=== PATIENT | female | born 1940 | race African-American/Black ===

== ENCOUNTER 2021-01-13 04:31 | Inpatient (IN) | payer OTHER ==
[~2021-01-13] VITALS: Ht 175.3 cm; Wt 73.6 kg
[2021-01-13 05:40] LABS: Eosinophils # (auto) 0 10 ^3/uL (0-0.8); Eosinophils % (auto) 0.1 % (0.0-7.0); Monocytes # (auto) 0.4 10 ^3/uL (0-1.3); Monocytes % (auto) 3.6 % (0.0-12.0)
[2021-01-13 05:46] LABS: Basophils # (auto) 0 10 ^3/uL (0-0.2); Basophils % (auto) 0.4 % (0.0-2.0); Hematocrit 24.3 % (36.0-46.0); Hemoglobin 8.3 g/dL (12.2-16.2); Lymphocytes # (auto) 0.3 10 ^3/uL (0.4-5.4); Lymphocytes % (auto) 3.2 % (10.0-50.0); Mean Corpuscular Volume 79.4 fL (80.0-100.0); Neutrophils # (auto) 9.4 10 ^3/uL (1.6-8.6); Neutrophils % (auto) 92.7 % (37.0-80.0); Nucleated Red Blood Cells % 0.3 %; Red Blood Cells 3.05 10^6/uL (4.0-5.20); White Blood Cell 10.2 10^3/uL (4.4-10.8)
[2021-01-13 06:06] LABS: Lactic Acid w/Reflex 2.9 mmol/L (0.4-2.0)
[2021-01-13 06:07] LABS: Albumin 2.9 g/dL (3.4-5.0); BUN/Creatinine Ratio 25.5; Bilirubin, Total 6.6 mg/dL (0.2-1.0); Calcium 8.4 mg/dL (8.5-10.1); Potassium 3.3 mmol/L (3.5-5.1)
[2021-01-13] MEDS ORDERED: PIPERACILLIN-TAZOB 3.375GM 100 ML IV ONE (07:15)
[2021-01-13] MEDS ORDERED: FUROSEMIDE 40 MG/4 ML VIAL IV ONE (07:15)
[2021-01-13 07:20] LABS: Urine Amorphous Crystal FEW /hpf (None Seen); Urine Bacteria NONE SEEN /hpf (None Seen); Urine Blood 2+ /uL (Negative); Urine Specific Gravity 1.014 (1.001-1.035); Urine WBC 9 /hpf (0 - 5)
[2021-01-13] MEDS ORDERED: LORazepam 2MG/ML-1ML VIAL IV ONE (15:15)
[2021-01-13] MEDS ORDERED: HALOPERIDOL LACTATE 5 MG/ML INJ VIAL IM ONE (15:45)
[2021-01-13] MEDS ORDERED: NITROGLYCERIN 0.4 MG SL TAB SL PRN (17:15)
[2021-01-13] MEDS ORDERED: POTASSIUM CHLORIDE 20 MEQ, LIDOCAINE 1% (LOCAL ANESTH.) 2 ML in SODIUM CHL 0.9% 100 ML IV ONE (17:15)
[2021-01-13] MEDS ORDERED: MORPHINE SULFATE INJECTION 2 MG/2 ML SYRG IV PRN (17:15)
[2021-01-13] MEDS: cefTRIAXone 1GM/50ML D5W 50 ML IV SCH (18:05)
[2021-01-13 19:00] LABS: INR 1.27 (0.9-1.15); Partial Thromboplastin Time 30.4 sec (23.6-33.0)
[2021-01-13] MEDS: SPIRONOLACTONE 25 MG TAB PO SCH (19:30)
[2021-01-13] MEDS: CLINDAMYCIN 300MG IV 50 ML IV SCH (22:29)
[2021-01-14] MEDS ORDERED: DEXTROSE (50%) 50ML SYRG IV PRN (00:15)
[2021-01-14 04:30] LABS: Basophils # (auto) 0 10 ^3/uL (0-0.2); Eosinophils # (auto) 0 10 ^3/uL (0-0.8); Hematocrit 27.9 % (36.0-46.0); Lymphocytes # (auto) 0.3 10 ^3/uL (0.4-5.4); Monocytes # (auto) 0.5 10 ^3/uL (0-1.3); Neutrophils # (auto) 9.1 10 ^3/uL (1.6-8.6); Nucleated Red Blood Cells % 0.2 %
[2021-01-14 04:34] LABS: Basophils % (auto) 0.3 % (0.0-2.0); Eosinophils % (auto) 0.2 % (0.0-7.0); Hemoglobin 8.9 g/dL (12.2-16.2); Lymphocytes % (auto) 3.1 % (10.0-50.0); Mean Corpuscular Hemoglobin 25.8 pg (28.0-32.0); Mean Corpuscular Hgb Conc. 31.9 g/dL (32.0-36.0); Monocytes % (auto) 5.4 % (0.0-12.0); Red Blood Cells 3.44 10^6/uL (4.0-5.20)
[2021-01-14 04:49] LABS: Red Cell Distribution Width 22.4 % (11.8-14.3)
[2021-01-14 04:55] LABS: Albumin 2.8 g/dL (3.4-5.0); BUN/Creatinine Ratio 23.7; Calcium 8.4 mg/dL (8.5-10.1); Potassium 3.6 mmol/L (3.5-5.1)
[2021-01-14 04:58] LABS: Total Protein 5.9 g/dL (6.4-8.2)
[2021-01-14] MEDS: SPIRONOLACTONE 25 MG TAB PO SCH ×2 (06:00→18:00)
[2021-01-14] MEDS: CLINDAMYCIN 300MG IV 50 ML IV SCH ×3 (06:16→23:48)
[2021-01-14] MEDS: ACCU-CHEK COMFORT CURVE STRIP VI SCH ×4 (07:55→22:00)
[2021-01-14] MEDS: InsuLIN REG 1unit/0.01ml Soln (100units/ml) SC SCH ×4 (07:56→22:00)
[2021-01-14] MEDS: cefTRIAXone 1GM/50ML D5W 50 ML IV SCH (09:53)
[2021-01-14] MEDS: FUROSEMIDE 20 MG/2 ML VIAL IV SCH (10:23)
[2021-01-14] MEDS: SODIUM CHLORIDE 0.9% 1,000 ML IV SCH (11:06)
[2021-01-15] MEDS: SODIUM CHLORIDE 0.9% 1,000 ML IV SCH ×2 (01:02→01:18)
[2021-01-15 04:33] LABS: Basophils # (auto) 0 10 ^3/uL (0-0.2); Basophils % (auto) 0.3 % (0.0-2.0); Hemoglobin 8.6 g/dL (12.2-16.2); Monocytes # (auto) 0.4 10 ^3/uL (0-1.3); White Blood Cell 7.7 10^3/uL (4.4-10.8)
[2021-01-15 04:36] LABS: Eosinophils # (auto) 0.1 10 ^3/uL (0-0.8); Eosinophils % (auto) 0.7 % (0.0-7.0); Hematocrit 26.4 % (36.0-46.0); Lymphocytes # (auto) 0.4 10 ^3/uL (0.4-5.4); Lymphocytes % (auto) 4.6 % (10.0-50.0); Mean Corpuscular Hemoglobin 25.9 pg (28.0-32.0); Mean Corpuscular Hgb Conc. 32.4 g/dL (32.0-36.0); Monocytes % (auto) 4.6 % (0.0-12.0); Neutrophils # (auto) 6.9 10 ^3/uL (1.6-8.6); Neutrophils % (auto) 89.8 % (37.0-80.0); Nucleated Red Blood Cells % 0.3 %
[2021-01-15 04:47] LABS: Red Cell Distribution Width 24.2 % (11.8-14.3)
[2021-01-15 04:49] LABS: INR 1.19 (0.9-1.15); Partial Thromboplastin Time 30.6 sec (23.6-33.0)
[2021-01-15 04:52] LABS: BUN/Creatinine Ratio 25.8; Calcium 8.5 mg/dL (8.5-10.1); Potassium 3.6 mmol/L (3.5-5.1)
[2021-01-15] MEDS: SPIRONOLACTONE 25 MG TAB PO SCH ×2 (05:31→17:27)
[2021-01-15] MEDS: CLINDAMYCIN 300MG IV 50 ML IV SCH ×3 (05:31→21:56)
[2021-01-15] MEDS: ACCU-CHEK COMFORT CURVE STRIP VI SCH ×4 (06:04→21:56)
[2021-01-15] MEDS: InsuLIN REG 1unit/0.01ml Soln (100units/ml) SC SCH ×4 (06:43→21:56)
[2021-01-15 08:22] VITALS: BP 134/66
[2021-01-15 09:00] VITALS: BP 112/62
[2021-01-15] MEDS: cefTRIAXone 1GM/50ML D5W 50 ML IV SCH (09:29)
[2021-01-15] MEDS: FUROSEMIDE 20 MG/2 ML VIAL IV SCH (09:36)
[2021-01-15 13:00] VITALS: BP 118/25
[2021-01-15 22:00] VITALS: BP 122/68
[2021-01-16 05:00] VITALS: BP 120/58
[2021-01-16] MEDS: SPIRONOLACTONE 25 MG TAB PO SCH ×2 (06:00→17:04)
[2021-01-16] MEDS: CLINDAMYCIN 300MG IV 50 ML IV SCH ×3 (06:06→21:32)
[2021-01-16] MEDS: ACCU-CHEK COMFORT CURVE STRIP VI SCH ×4 (06:51→21:39)
[2021-01-16] MEDS: InsuLIN REG 1unit/0.01ml Soln (100units/ml) SC SCH ×4 (06:51→21:33)
[2021-01-16 07:05] LABS: Basophils # (auto) 0 10 ^3/uL (0-0.2); Eosinophils # (auto) 0 10 ^3/uL (0-0.8); Eosinophils % (auto) 0.3 % (0.0-7.0); Hemoglobin 9.2 g/dL (12.2-16.2); Lymphocytes # (auto) 0.5 10 ^3/uL (0.4-5.4); Mean Corpuscular Hemoglobin 26.2 pg (28.0-32.0); Neutrophils # (auto) 8.2 10 ^3/uL (1.6-8.6)
[2021-01-16 07:09] LABS: Basophils % (auto) 0.3 % (0.0-2.0); Hematocrit 28.3 % (36.0-46.0); Lymphocytes % (auto) 5.5 % (10.0-50.0); Mean Corpuscular Hgb Conc. 32.4 g/dL (32.0-36.0); Mean Corpuscular Volume 80.9 fL (80.0-100.0); Monocytes # (auto) 0.8 10 ^3/uL (0-1.3); Monocytes % (auto) 8.3 % (0.0-12.0); Neutrophils % (auto) 85.6 % (37.0-80.0); Nucleated Red Blood Cells % 0.4 %; White Blood Cell 9.5 10^3/uL (4.4-10.8)
[2021-01-16 07:18] LABS: INR 1.92 (0.9-1.15); Partial Thromboplastin Time 43.4 sec (23.6-33.0); Red Cell Distribution Width 24.5 % (11.8-14.3)
[2021-01-16 07:32] LABS: Alanine Aminotransferase 31 U/L (13-56); Albumin 2.4 g/dL (3.4-5.0); Anion Gap 11 (5-15); Aspartate Aminotransferase 36 U/L (15-37); BUN/Creatinine Ratio 24.5; Blood Urea Nitrogen 64 mg/dL (7-18); Calcium 8.2 mg/dL (8.5-10.1); Carbon Dioxide 25 mmol/L (21-32); Chloride 108 mmol/L (98-107); GFR African American 23 mL/min; GFR Non-African American 19 mL/min; Glucose 137 mg/dL (74-106); Magnesium 1.8 mg/dL (1.6-2.6); Potassium 3.4 mmol/L (3.5-5.1); Sodium 144 mmol/L (136-145)
[2021-01-16 07:34] LABS: Alkaline Phosphatase 190 U/L (45-117); Bilirubin, Total 4.6 mg/dL (0.2-1.0); Total Protein 5.6 g/dL (6.4-8.2)
[2021-01-16] MEDS ORDERED: PHYTONADIONE(VitK) ORAL Susp 10mg/10ml(1mg/ml) PO ONE (08:30)
[2021-01-16 09:00] VITALS: BP 146/67
[2021-01-16] MEDS: cefTRIAXone 1GM/50ML D5W 50 ML IV SCH (09:17)
[2021-01-16] MEDS: FUROSEMIDE 20 MG/2 ML VIAL IV SCH (09:23)
[2021-01-16 13:00] VITALS: BP 137/69
[2021-01-16 17:00] VITALS: BP 134/61
[2021-01-16] MEDS: MORPHINE SULFATE INJECTION 2 MG/2 ML SYRG IV PRN (17:03)
[2021-01-16] MEDS: FUROSEMIDE 40 MG/4 ML VIAL IV SCH (17:15)
[2021-01-16] MEDS: MUPIROCIN 2% OINT 15gm or 22gm EACHNOSTRI SCH (21:39)
[2021-01-16 22:00] VITALS: BP 130/67
[2021-01-17 05:00] VITALS: BP 102/54
[2021-01-17] MEDS: CLINDAMYCIN 300MG IV 50 ML IV SCH ×3 (06:23→21:20)
[2021-01-17] MEDS: FUROSEMIDE 40 MG/4 ML VIAL IV SCH ×2 (06:24→12:58)
[2021-01-17] MEDS: SPIRONOLACTONE 25 MG TAB PO SCH ×2 (06:24→17:31)
[2021-01-17] MEDS: InsuLIN REG 1unit/0.01ml Soln (100units/ml) SC SCH ×3 (06:25→21:21)
[2021-01-17] MEDS: ACCU-CHEK COMFORT CURVE STRIP VI SCH ×4 (06:25→21:21)
[2021-01-17 07:48] LABS: Basophils # (auto) 0 10 ^3/uL (0-0.2); Eosinophils # (auto) 0 10 ^3/uL (0-0.8); Lymphocytes # (auto) 0.4 10 ^3/uL (0.4-5.4); Monocytes # (auto) 0.7 10 ^3/uL (0-1.3); Neutrophils # (auto) 7.2 10 ^3/uL (1.6-8.6); Red Cell Distribution Width 24.8 % (11.8-14.3); White Blood Cell 8.3 10^3/uL (4.4-10.8)
[2021-01-17 07:51] LABS: Basophils % (auto) 0.2 % (0.0-2.0); Eosinophils % (auto) 0.3 % (0.0-7.0); Hematocrit 26.8 % (36.0-46.0); Hemoglobin 8.6 g/dL (12.2-16.2); Lymphocytes % (auto) 4.9 % (10.0-50.0); Mean Corpuscular Hgb Conc. 32.3 g/dL (32.0-36.0); Mean Corpuscular Volume 80.7 fL (80.0-100.0); Monocytes % (auto) 8.5 % (0.0-12.0); Neutrophils % (auto) 86.1 % (37.0-80.0); Nucleated Red Blood Cells % 0.2 %; Red Blood Cells 3.32 10^6/uL (4.0-5.20)
[2021-01-17 07:53] LABS: INR 1.25 (0.9-1.15); Partial Thromboplastin Time 35.1 sec (23.6-33.0)
[2021-01-17 08:17] LABS: BUN/Creatinine Ratio 25.5; Magnesium 1.8 mg/dL (1.6-2.6); Potassium 3.1 mmol/L (3.5-5.1)
[2021-01-17] MEDS: cefTRIAXone 1GM/50ML D5W 50 ML IV SCH (09:07)
[2021-01-17] MEDS: PANTOPRAZOLE 40 MG TAB PO SCH (09:11)
[2021-01-17 09:36] VITALS: BP 125/55
[2021-01-17] MEDS: MUPIROCIN 2% OINT 15gm or 22gm EACHNOSTRI SCH ×3 (10:00→21:20)
[2021-01-17] MEDS ORDERED: POTASSIUM EFFERVESENT TAB 25 MEQ PO ONE (11:15)
[2021-01-17] MEDS ORDERED: D5W/SOD CHLO 0.9% 1,000 ML IV SCH (11:15)
[2021-01-17] MEDS ORDERED: POTASSIUM CHL 20MEQ/50ML 50 ML IV SCH (12:15)
[2021-01-17] MEDS ORDERED: POTASSIUM CHL 20MEQ/100ML 100 ML IV ONE (12:45)
[2021-01-17] MEDS ORDERED: DEXTROSE (50%) 50ML SYRG IV PRN (12:45)
[2021-01-17 13:00] VITALS: BP 133/74
[2021-01-17] MEDS ORDERED: InsuLIN REG 1unit/0.01ml Soln (100units/ml) SC ONE (13:00)
[2021-01-17] MEDS ORDERED: ACCU-CHEK COMFORT CURVE STRIP VI ONE (13:00)
[2021-01-17 16:49] VITALS: BP 125/73
[2021-01-18] MEDS: ACCU-CHEK COMFORT CURVE STRIP VI SCH ×4 (05:25→22:07)
[2021-01-18] MEDS: SPIRONOLACTONE 25 MG TAB PO SCH ×3 (05:27→20:08)
[2021-01-18] MEDS: InsuLIN REG 1unit/0.01ml Soln (100units/ml) SC SCH ×4 (05:27→22:16)
[2021-01-18] MEDS: CLINDAMYCIN 300MG IV 50 ML IV SCH ×3 (05:28→22:07)
[2021-01-18 05:30] VITALS: BP 128/65
[2021-01-18 09:00] VITALS: BP 126/55
[2021-01-18] MEDS: MUPIROCIN 2% OINT 15gm or 22gm EACHNOSTRI SCH ×2 (10:00→22:07)
[2021-01-18] MEDS: PANTOPRAZOLE 40 MG TAB PO SCH (10:00)
[2021-01-18] MEDS: MORPHINE SULFATE INJECTION 2 MG/2 ML SYRG IV PRN (10:01)
[2021-01-18] MEDS: FUROSEMIDE 40 MG/4 ML VIAL IV SCH (10:23)
[2021-01-18 13:00] VITALS: BP 133/67
[2021-01-18] MEDS ORDERED: POTASSIUM CHL 20 Meq TABLET PO ONE (13:15)
[2021-01-18 14:38] LABS: Basophils # (auto) 0 10 ^3/uL (0-0.2); Eosinophils # (auto) 0 10 ^3/uL (0-0.8); Eosinophils % (auto) 0.2 % (0.0-7.0); Hemoglobin 8.5 g/dL (12.2-16.2); Mean Corpuscular Hemoglobin 25.5 pg (28.0-32.0); Nucleated Red Blood Cells % 0.2 %
[2021-01-18 14:39] LABS: Basophils % (auto) 0.5 % (0.0-2.0); Hematocrit 26.9 % (36.0-46.0); Lymphocytes % (auto) 12.7 % (10.0-50.0); Mean Corpuscular Hgb Conc. 31.4 g/dL (32.0-36.0); Mean Corpuscular Volume 81.2 fL (80.0-100.0); Monocytes # (auto) 0.6 10 ^3/uL (0-1.3); Monocytes % (auto) 7.3 % (0.0-12.0); Neutrophils # (auto) 6.6 10 ^3/uL (1.6-8.6); Neutrophils % (auto) 79.3 % (37.0-80.0); Red Blood Cells 3.32 10^6/uL (4.0-5.20); White Blood Cell 8.3 10^3/uL (4.4-10.8)
[2021-01-18 14:42] LABS: Red Cell Distribution Width 24.6 % (11.8-14.3)
[2021-01-18 14:53] LABS: BUN/Creatinine Ratio 23.7; Calcium 7.7 mg/dL (8.5-10.1); Magnesium 1.7 mg/dL (1.6-2.6); Potassium 3.5 mmol/L (3.5-5.1)
[2021-01-18 21:34] VITALS: BP 121/79
[2021-01-19] MEDS ORDERED: ONDANSETRON HCL 4 MG/2 ML VIAL IV PRN (00:30)
[2021-01-19 05:30] VITALS: BP 116/75
[2021-01-19] MEDS: InsuLIN REG 1unit/0.01ml Soln (100units/ml) SC SCH ×4 (06:00→21:51)
[2021-01-19] MEDS: CLINDAMYCIN 300MG IV 50 ML IV SCH ×3 (06:06→21:50)
[2021-01-19] MEDS: SPIRONOLACTONE 25 MG TAB PO SCH ×2 (06:06→18:29)
[2021-01-19] MEDS: ACCU-CHEK COMFORT CURVE STRIP VI SCH ×4 (06:07→21:51)
[2021-01-19 06:49] LABS: Hemoglobin 9.1 g/dL (12.2-16.2)
[2021-01-19 06:53] LABS: Hematocrit 27.8 % (36.0-46.0); Mean Corpuscular Hemoglobin 26.3 pg (28.0-32.0); Mean Corpuscular Hgb Conc. 32.7 g/dL (32.0-36.0); Mean Corpuscular Volume 80.3 fL (80.0-100.0); Red Blood Cells 3.46 10^6/uL (4.0-5.20)
[2021-01-19 07:02] LABS: Red Cell Distribution Width 24.6 % (11.8-14.3)
[2021-01-19 07:03] LABS: Band Neutrophils % (manual) 0; Basophils % (manual) 0 (0.0-2.0); Blast Cells 0; Eosinophils % (manual) 0 (0-7); Myelocytes % 0; Promyelocytes % 0; Reactive Lymphocytes 0
[2021-01-19 07:04] LABS: INR 1.3 (0.9-1.15); Partial Thromboplastin Time 29.8 sec (23.6-33.0)
[2021-01-19 07:09] LABS: Calcium 7.8 mg/dL (8.5-10.1); Magnesium 1.5 mg/dL (1.6-2.6)
[2021-01-19 07:11] LABS: BUN/Creatinine Ratio 23.9
[2021-01-19 08:34] LABS: Lymphocytes % (manual) 9 (10.0-50.0); Metamyelocytes % 2; Monocytes % (manual) 5 (0-12)
[2021-01-19 09:00] VITALS: BP 130/66
[2021-01-19 09:25] LABS: Hepatitis B Surface Antibody Negative
[2021-01-19 10:01] LABS: Hepatitis A Total Antibody Positive
[2021-01-19] MEDS: FUROSEMIDE 40 MG/4 ML VIAL IV SCH (10:44)
[2021-01-19] MEDS: PANTOPRAZOLE 40 MG TAB PO SCH (10:44)
[2021-01-19] MEDS: MUPIROCIN 2% OINT 15gm or 22gm EACHNOSTRI SCH ×2 (10:45→21:49)
[2021-01-19 13:00] VITALS: BP 146/91
[2021-01-19 13:01] LABS: Hepatitis B Core Total AB Negative; Hepatitis B Surface Antigen Negative (Negative); Hepatitis C Antibody Negative (Negative)
[2021-01-19 17:00] VITALS: BP 108/50
[2021-01-19] MEDS: MAGNESIUM OXIDE 400 MG TAB PO SCH (21:51)
[2021-01-20 05:00] VITALS: BP 127/74
[2021-01-20] MEDS: CLINDAMYCIN 300MG IV 50 ML IV SCH ×3 (05:31→22:47)
[2021-01-20] MEDS: ACCU-CHEK COMFORT CURVE STRIP VI SCH ×4 (05:32→22:47)
[2021-01-20] MEDS: InsuLIN REG 1unit/0.01ml Soln (100units/ml) SC SCH ×4 (05:32→22:53)
[2021-01-20] MEDS: SPIRONOLACTONE 25 MG TAB PO SCH ×2 (05:32→19:04)
[2021-01-20 06:44] LABS: Hemoglobin 8.5 g/dL (12.2-16.2)
[2021-01-20 06:47] LABS: Basophils # (auto) 0 10 ^3/uL (0-0.2); Basophils % (auto) 0.3 % (0.0-2.0); Eosinophils # (auto) 0 10 ^3/uL (0-0.8); Hematocrit 26.4 % (36.0-46.0); Lymphocytes # (auto) 0.5 10 ^3/uL (0.4-5.4); Mean Corpuscular Hemoglobin 26.3 pg (28.0-32.0); Mean Corpuscular Hgb Conc. 32.2 g/dL (32.0-36.0); Mean Corpuscular Volume 81.6 fL (80.0-100.0); Monocytes # (auto) 0.7 10 ^3/uL (0-1.3); Monocytes % (auto) 7.6 % (0.0-12.0); Neutrophils # (auto) 8.4 10 ^3/uL (1.6-8.6); Neutrophils % (auto) 87.1 % (37.0-80.0); Nucleated Red Blood Cells % 0.4 %; Red Blood Cells 3.23 10^6/uL (4.0-5.20); White Blood Cell 9.6 10^3/uL (4.4-10.8)
[2021-01-20 06:52] LABS: Red Cell Distribution Width 25.2 % (11.8-14.3)
[2021-01-20 07:02] LABS: Potassium 4.3 mmol/L (3.5-5.1)
[2021-01-20 07:10] LABS: BUN/Creatinine Ratio 21.5; Calcium 7.7 mg/dL (8.5-10.1)
[2021-01-20 09:00] VITALS: BP 115/85
[2021-01-20] MEDS: MAGNESIUM OXIDE 400 MG TAB PO SCH ×2 (11:22→22:46)
[2021-01-20] MEDS: PANTOPRAZOLE 40 MG TAB PO SCH (11:22)
[2021-01-20] MEDS: FUROSEMIDE 40 MG/4 ML VIAL IV SCH (11:22)
[2021-01-20] MEDS: MUPIROCIN 2% OINT 15gm or 22gm EACHNOSTRI SCH ×2 (11:26→22:46)
[2021-01-20 12:55] VITALS: BP 127/74
[2021-01-20] MEDS: MORPHINE SULFATE INJECTION 2 MG/2 ML SYRG IV PRN (14:54)
[2021-01-20 17:35] VITALS: BP 131/78
[2021-01-20 22:00] VITALS: BP 124/67
[2021-01-21] MEDS: MORPHINE SULFATE INJECTION 2 MG/2 ML SYRG IV PRN ×2 (01:58→07:14)
[2021-01-21 05:00] VITALS: BP 126/72
[2021-01-21] MEDS: CLINDAMYCIN 300MG IV 50 ML IV SCH ×2 (06:50→14:00)
[2021-01-21] MEDS: SPIRONOLACTONE 25 MG TAB PO SCH ×2 (06:50→18:00)
[2021-01-21] MEDS: InsuLIN REG 1unit/0.01ml Soln (100units/ml) SC SCH ×3 (06:51→17:00)
[2021-01-21] MEDS: ACCU-CHEK COMFORT CURVE STRIP VI SCH ×3 (06:51→17:00)
[2021-01-21 07:06] LABS: BUN/Creatinine Ratio 19.6; Calcium 7.4 mg/dL (8.5-10.1)
[2021-01-21 07:07] LABS: Basophils # (auto) 0 10 ^3/uL (0-0.2); Eosinophils # (auto) 0 10 ^3/uL (0-0.8); Eosinophils % (auto) 0.1 % (0.0-7.0); Monocytes # (auto) 0.6 10 ^3/uL (0-1.3)
[2021-01-21 07:08] LABS: Basophils % (auto) 0.4 % (0.0-2.0); Hematocrit 27.5 % (36.0-46.0); Hemoglobin 9.2 g/dL (12.2-16.2); Lymphocytes # (auto) 0.5 10 ^3/uL (0.4-5.4); Lymphocytes % (auto) 5.2 % (10.0-50.0); Mean Corpuscular Hgb Conc. 33.5 g/dL (32.0-36.0); Mean Corpuscular Volume 80.5 fL (80.0-100.0); Monocytes % (auto) 6.3 % (0.0-12.0); Neutrophils # (auto) 8.8 10 ^3/uL (1.6-8.6); Nucleated Red Blood Cells % 1.2 %; Red Blood Cells 3.41 10^6/uL (4.0-5.20)
[2021-01-21 07:56] LABS: Red Cell Distribution Width 25.3 % (11.8-14.3)
[2021-01-21] MEDS: Ensure Enlive Strawberry 8oz Bottle PO SCH ×3 (08:00→18:00)
[2021-01-21 09:00] VITALS: BP 135/65
[2021-01-21] MEDS: MUPIROCIN 2% OINT 15gm or 22gm EACHNOSTRI SCH (10:26)
[2021-01-21] MEDS: MAGNESIUM OXIDE 400 MG TAB PO SCH (10:27)
[2021-01-21] MEDS: PANTOPRAZOLE 40 MG TAB PO SCH (10:28)
[2021-01-21] MEDS: FUROSEMIDE 40 MG/4 ML VIAL IV SCH (10:28)
[2021-01-21] MEDS ORDERED: SPIR25TA PO (11:40)
[2021-01-21] MEDS ORDERED: AML5T PO (11:40)
[2021-01-21] MEDS ORDERED: GLIP5TAB12 PO (11:40)
[2021-01-21] MEDS ORDERED: DOXE10CA PO (11:40)
[2021-01-21] MEDS ORDERED: POTA10TA51 PO (11:40)
[2021-01-21] MEDS ORDERED: MIN25T PO (11:40)
[2021-01-21] MEDS ORDERED: FURO1TAB31 PO (11:40)
[2021-01-21 12:42] VITALS: BP 134/76
[2021-01-21 17:00] VITALS: BP 122/53
[2021-01-21 19:16] VITALS: BP 135/65
== END 2021-01-21 20:05 | disposition hospice, home (50) | DRG 70 ==
LOC: EDBD 04:31 → ER 04:31 → TELE 17:07 → TELE-WESTW 01-15 08:11
PROVIDERS: ADMIT Nurse Practitioner Acute Care; ATTEND Internal Medicine Geriatric Medicine
PROC: 0W9B3ZZ Drainage of Left Pleural Cavity, Percutaneous Approach (ICD-10-PCS; 2021-01-16)
PROC: 0W9G3ZZ Drainage of Peritoneal Cavity, Percutaneous Approach (ICD-10-PCS; 2021-01-19)
PROC: 0W993ZZ Drainage of Right Pleural Cavity, Percutaneous Approach (ICD-10-PCS; principal; 2021-01-20)
DX: G93.41 Metabolic encephalopathy (principal); L89.153 Pressure ulcer of sacral region, stage 3; I50.23 Acute on chronic systolic (congestive) heart failure; N18.6 End stage renal disease; J96.01 Acute respiratory failure with hypoxia; R18.8 Other ascites; E44.0 Moderate protein-calorie malnutrition; I48.20 Chronic atrial fibrillation, unspecified; J91.8 Pleural effusion in other conditions classified elsewhere; D68.9 Coagulation defect, unspecified; I13.2 Hypertensive heart and chronic kidney disease with heart failure and with stage 5 chronic kidney disease, or end stage renal disease; J98.11 Atelectasis; Z20.822 Contact with and (suspected) exposure to COVID-19; I25.10 Atherosclerotic heart disease of native coronary artery without angina pectoris; Z51.5 Encounter for palliative care; K21.9 Gastro-esophageal reflux disease without esophagitis; R79.89 Other specified abnormal findings of blood chemistry; E86.0 Dehydration; K74.60 Unspecified cirrhosis of liver; D63.8 Anemia in other chronic diseases classified elsewhere; E11.65 Type 2 diabetes mellitus with hyperglycemia; L89.526 Pressure-induced deep tissue damage of left ankle; L89.516 Pressure-induced deep tissue damage of right ankle; L89.106 Pressure-induced deep tissue damage of unspecified part of back; J44.9 Chronic obstructive pulmonary disease, unspecified; E11.22 Type 2 diabetes mellitus with diabetic chronic kidney disease; Z79.899 Other long term (current) drug therapy; Z90.710 Acquired absence of both cervix and uterus; Z68.24 Body mass index [BMI] 24.0-24.9, adult; Z99.2 Dependence on renal dialysis; Z79.01 Long term (current) use of anticoagulants; Z88.8 Allergy status to other drugs, medicaments and biological substances
CPT/HCPCS: 36415; 36600; 70450; 71045; 71250; 76604; 76700; 76942; 80048; 80053; 81001; 82140; 82805; 82962; 83605; 83735; 83880; 85007; 85025; 85027; 85610; 85730; 86704; 86706; 86708; 86803; 87081; 87340; 87426; 89051; 92610; 93005; 96365; 96366; 96367; 96368; 96375; 97163; 99291; G0378; J0696; J1815; J2001; J2405; J2543; J3480; J3490; J7042